=== PATIENT | male | born 1950 | race Caucasian/White ===

== ENCOUNTER → 2016-09-14 | Outpatient (CLI) | payer OTHER ==
[~2016-09-14] MED LIST: ATV/1 PO; ATV5 PO; B-COCAP2 PO; CRAN400C PO; DIAZ2TAB PO; DUTA0.5C PO; FURO-85 PO; IBUP-1050 PO; IPRASOL4 INH; LORA-741 PO; MORP1TAB11 PO; MRPL PO; NYSS5 PO; OMEG10007 PO; ONDA4TAB46 SQ; TAMS0.4C38 PO
== END | disposition home or self-care (01) ==
LOC: C.LABSPEC 15:35
PROVIDERS: ATTEND Nurse Practitioner Family
DX: R35.0 Frequency of micturition (principal)

== ENCOUNTER 2016-09-27 11:04 | Inpatient (IN) | payer OTHER, MEDICARE ==
[~2016-09-27] VITALS: Ht 188 cm; Wt 86.9 kg
[~2016-09-27 11:04] MED LIST changes: -ATV/1 PO; -ATV5 PO; -DIAZ2TAB PO; -DUTA0.5C PO; -FURO-85 PO; -IPRASOL4 INH; -LORA-741 PO; -MORP1TAB11 PO; -MRPL PO; -NYSS5 PO; -ONDA4TAB46 SQ; -TAMS0.4C38 PO
--- NOTE | 2016-09-27 11:19 | EMERGENCY ROOM VISIT NOTE ---
History Report prepared by Torrie: Kun Brandt Under the Supervision of: Dr. Rafael Arias D.O. First contact with patient: 11:09 Chief Complaint: REFERRED BY DOCTOR Stated Complaint: REFERRED BY [facility] POSSIBLE TB History of Present Illness The patient is a 66 year old male who presents to the Emergency Room with complaints of intermittent shortness of breath "for a while". Per the nursing staff, the patient was sent here from [facility] after having an abnormal chest x-ray this morning. The patient was being seen at [facility] for the shortness of breath. The chest x-ray reading says that the patient could have possible pneumonia or tuberculosis. The patient has been experiencing shortness of breath for the last 3 weeks. The patient has also been experiencing weight loss over the last few months. He denies having any definite night sweats or fevers. He has had no hemoptysis but has experience a dry cough. He has had dyspnea on exertion but no orthopnea or swelling in the legs. The patient has been seen by his primary care physician and also had an outpatient chest x-ray today. The patient was referred to the emergency department after the chest x-ray for possible miliary TB. 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 He states for approximately one year after this exposure he did have a PPD testing which was negative at that time. The patient does not have any history of cancer. He denies having any chest pain. He does complain of shortness of breath with exertion. Source of History: patient, nursing staff Onset: Last 3 weeks Position: other (global - shortness of breath) Quality: other (possible pneumonia or tuberculosis) Timing: intermittent Modifying Factors (Worsening): exertion Associated Symptoms: + cough, No chest pain, No diaphoresis, No fevers Note: Associated symptoms: Denies orthopnea or leg swelling. Review of Systems See HPI for pertinent positives & negatives. A total of 10 systems reviewed and were otherwise negative. Past Medical & Surgical Medical Problems: (1) Prostatitis (2) Pulmonary cavitary lesion (3) SOB (shortness of breath) on exertion Family History Unobtainable Social History Smoking Status: Never Smoker Alcohol Use: occasionally Drug Use: none Marital Status: Housing Status: lives with family Occupation Status: employed Current/Historical Medications Scheduled Cranberry (Vaccinium Macrocarp (Cranberry), 1 CAP PO BID Dutasteride (Avodart), 1 CAP PO DAILY Fish Oil (Mode-3), 1 CAP PO DAILY Ibuprofen (Advil), 200 MG PO prn Vitamin B Cmplx/Vitc/Folic Ac (Nephrocaps), 1 CAP PO DAILY Allergies Coded Allergies: Peanut (Unverified Allergy, Intermediate, HIVES, DIFFICULTY BREATHING, 09/02) Uncoded Allergies: "EMMIE" ASTHMA RELATED (Allergy, Unknown, 06/25/02) N (Allergy, Unknown, 06/25/02) Physical Exam Vital Signs Date Time Temp Pulse Resp B/P Pulse Ox O2 Delivery O2 Flow Rate FiO2 09/27/16 12:27 101 20 141/101 91 Room Air 09/27/16 11:36 108 09/27/16 11:06 36.8 119 18 151/85 93 Room Air Physical Exam GENERAL: Patient is awake alert in no acute distress patient is resting comfortably and showing no signs of anxiety EYES: The conjunctivae are clear. The pupils are round and reactive. EARS, NOSE, MOUTH AND THROAT: The nose is without any evidence of any deformity. Mucous membranes are moist tongue is midline NECK: The neck is nontender and supple. RESPIRATORY: No tachypnea or conversational dyspnea was noted. There were diminished breath sounds noted throughout. Dry Rales were noted in all lung ocampo. CARDIOVASCULAR: Regular rate and rhythm noted there no murmurs rubs or gallops normal S1 normal S2 GASTROINTESTINAL: The abdomen is soft. Bowel sounds are present in all quadrants. Abdomen is nontender MUSCULOSKELETAL/EXTREMITIES: There is no evidence of gross deformity full range of motion is noted in the hips and shoulders SKIN: There is no obvious evidence of any rash. There are no petechiae, pallor or cyanosis noted. NEUROLOGIC: Patient is awake alert and oriented x3. Medical Decision & Procedures ER Provider Diagnostic Interpretation: X-ray results as stated below per interpretation by me and the radiologist. CHEST ONE VIEW PORTABLE CLINICAL HISTORY: Sepsis COMPARISON STUDY: No previous studies for comparison. FINDINGS: The heart is at the upper limits of normal in size. There is a small right pleural effusion. There are bilateral reticulonodular opacities with subpleural septal edema on the right. There is a more focal right upper lobe airspace opacity. The findings are likely infectious/inflammatory given history of sepsis with possible superimposed edema. A right suprahilar neoplastic process cannot be excluded. Clinical and radiographic follow-up is recommended.[ IMPRESSION: 1. Bilateral reticulonodular opacities with subpleural septal edema on the right 2. Focal masslike 6 cm right suprahilar airspace opacity. 3. Clinical and radiographic follow-up is recommended. Electronically signed by: Jose Rafael Reis M.D. 09/27/2016 11:50 AM Dictated Date/Time: 09/27/2016 11:47 AM Laboratory Results 09/27/16 11:45 Red Blood Count 5.56, Mean Corpuscular Volume 84.0, Mean Corpuscular Hemoglobin 29.5, Mean Corpuscular Hemoglobin Concent 35.1, Mean Platelet Volume 10.0, Neutrophils (%) (Auto) 81.4, Lymphocytes (%) (Auto) 8.6, Monocytes (%) (Auto) 8.3, Eosinophils (%) (Auto) 1.3, Basophils (%) (Auto) 0.2, Neutrophils # (Auto) 7.14, Lymphocytes # (Auto) 0.75, Monocytes # (Auto) 0.73, Eosinophils # (Auto) 0.11, Basophils # (Auto) 0.02 09/27/16 11:45 Test 09/27/16 11:45 09/27/16 11:56 White Blood Count 8.77 K/uL (4.8-10.8) Red Blood Count 5.56 M/uL (4.7-6.1) Hemoglobin 16.4 g/dL (14.0-18.0) Hematocrit 46.7 % (42-52) Mean Corpuscular Volume 84.0 fL (80-100) Mean Corpuscular Hemoglobin 29.5 pg (25-34) Mean Corpuscular Hemoglobin Concent 35.1 g/dl (32-36) Platelet Count 199 K/uL (130-400) Mean Platelet Volume 10.0 fL (7.4-10.4) Neutrophils (%) (Auto) 81.4 % Lymphocytes (%) (Auto) 8.6 % Monocytes (%) (Auto) 8.3 % Eosinophils (%) (Auto) 1.3 % Basophils (%) (Auto) 0.2 % Neutrophils # (Auto) 7.14 K/uL (1.4-6.5) Lymphocytes # (Auto) 0.75 K/uL (1.2-3.4) Monocytes # (Auto) 0.73 K/uL (0.11-0.59) Eosinophils # (Auto) 0.11 K/uL (0-0.5) Basophils # (Auto) 0.02 K/uL (0-0.2) RDW Standard Deviation 38.5 fL (36.4-46.3) RDW Coefficient of Variation 12.8 % (11.5-14.5) Immature Granulocyte % (Auto) 0.2 % Immature Granulocyte # (Auto) 0.02 K/uL (0.00-0.02) Erythrocyte Sedimentation Rate 22 mm/hr (0-14) Prothrombin Time 11.4 SECONDS (9.0-12.0) Prothromb Time International Ratio 1.1 (0.9-1.1) Activated Partial Thromboplast Time 29.9 SECONDS (21.0-31.0) Partial Thromboplastin Ratio 1.2 Urine Color DK YELLOW Urine Appearance CLEAR (CLEAR) Urine pH 5.5 (4.5-7.5) Urine Specific [place] 1.026 (1.000-1.030) Urine Protein NEG (NEG) Urine Glucose (UA) NEG (NEG) Urine Ketones TRACE (NEG) Urine Occult Blood NEG (NEG) Urine Nitrite NEG (NEG) Urine Bilirubin NEG (NEG) Urine Urobilinogen NEG (NEG) Urine Leukocyte Esterase NEG (NEG) Urine WBC (Auto) 1-5 /hpf (0-5) Urine RBC (Auto) 0-4 /hpf (0-4) Urine Hyaline Casts (Auto) 1-5 /lpf (0-5) Urine Epithelial Cells (Auto) 10-20 /lpf (0-5) Urine Bacteria (Auto) NEG (NEG) Venous Blood pH 7.48 (7.36-7.41) Venous Blood Partial Pressure CO2 33 mmHg (38.0-50.0) Venous Blood Partial Pressure O2 42 mmHg Venous Blood HCO3 23 mmol/L Venous Blood Oxygen Saturation 78.9 % Venous Blood Base Excess 0.7 mmol/L Anion Gap 10.0 mmol/L (3-11) Est Creatinine Clear Calc Drug Dose 108.4 ml/min Estimated GFR () 109.0 Estimated GFR (Non- 94.1 BUN/Creatinine Ratio 15.1 (10-20) Calcium Level 8.9 mg/dl (8.5-10.1) Magnesium Level 2.1 mg/dl (1.8-2.4) Total Bilirubin 0.8 mg/dl (0.2-1) Aspartate Amino Transf (AST/SGOT) 17 U/L (15-37) Alanine Aminotransferase (ALT/SGPT) 17 U/L (12-78) Alkaline Phosphatase 126 U/L (45-117) Troponin I < 0.015 ng/ml (0-0.045) C-Reactive Protein 1.99 mg/dl (0-0.29) Pro-B-Type Natriuretic Peptide 46 pg/ml (0-900) Total Protein 6.4 gm/dl (6.4-8.2) Albumin 3.0 gm/dl (3.4-5.0) Globulin 3.4 gm/dl (2.5-4.0) Albumin/Globulin Ratio 0.9 (0.9-2) Lipase 87 U/L (73-393) Bedside Lactic Acid Venous 1.30 mmol/L (0.90-1.70) Laboratory results per my review. Medications Administered Medications (Trade) Dose Ordered Sig/Josue Route Start Time Stop Time Status Last Admin Dose Admin Tuberculin PPD/ Syringe (Ppd Skin Test/ Syringe) 0.1 ml @ 0 mls/hr ONE ONCE INTRAD 09/27/16 11:30 09/27/16 11:32 DC 09/27/16 14:06 0.01 MLS/HR ECG Indication: SOB/dyspnea Rate (beats per minute): 109 Rhythm: sinus tachycardia Findings: PVC, other (LVH noted by voltage criteria, no acute ST segment abnormalities) Comparison ECG Date: no prior available ED Course 1110: The patient was evaluated in room A9B. A complete history and physical examination were performed. 1124: I discussed the patient [place] [facility] [place] - he recommends keeping the patient in the hospital for a formal TB workup. 1130: Ordered Tuberculin PPD 5 tu/Syringe 0.1 ml @ 0 mls/hr INTRAD. 1140: I reevaluated the patient and he is resting comfortably. The patient verbally expressed understanding and agreement with the treatment plan. The patient will be evaluated for further treatment. 1142: I discussed the patient with Marlene Elizabeth. She will evaluate the patient for further treatment. Medical Decision Prior records/ancillary studies reviewed. Triage Nursing notes reviewed. The patient's history was concerning for respiratory difficulties. Differential diagnosis: Etiologies such as infections, reactive airway disease, pneumonia, pneumothorax , COPD, CHF, cardiac ischemia, pulmonary embolism, musculoskeletal, gastrointestinal, as well as others were entertained. The patient is a 66-year-old male who presented to the emergency department for an evaluation of shortness of breath. The patient has had a nonproductive cough and dyspnea on exertion for the last few weeks. He was seen by his primary care physician initially. He was sent for chest x-ray at [facility]. [facility] today. After the chest x-ray. He was sent to the emergency department for possible tuberculosis. The patient does not have a history of tuberculosis. 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 He states that he did have follow-up testing for one year, which was negative. The patient is not a smoker. He denies having any hemoptysis. He does complain of weight loss however. 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 At this time because the patient's chest x-ray is worrisome. He recommends keeping the patient in negative pressure isolation until further workup can be undertaken to rule out tuberculosis. I discussed the patient's laboratory and radiographic studies with him. I also discussed his case with the on-call [facility] hospitalist. They 've agreed to evaluate the patient in the emergency department for further management and disposition. Consults Time Called: 1110 Consulting Physician: Dr. Oscar TRACY pulmonary medicine Returned Call: 1124 I discussed the patient with Dr. Oscar TRACY pulmonary medicine - he recommends keeping the patient in the hospital for a formal TB workup. Additional Consults: Time Called: 1135 Consulted Physician: Marlene Elizabeth Returned Call: 1142 Additional Comments: I discussed the patient with Marlene Elizabeth. She will evaluate the patient for further treatment. Impression Primary Impression: SOB (shortness of breath) Additional Impressions: Dyspnea on exertion Abnormal chest x-ray Rule out TB Scribe Attestation The scribe's documentation has been prepared under my direction and personally reviewed by me in its entirety. I confirm that the note above accurately reflects all work, treatment, procedures, and medical decision making performed by me. Departure Information Dispostion Being Evaluated By Hospitalist Referrals Martinez Chong III, M.D. (PCP) Patient Instructions [facility] Problem Qualifiers
[2016-09-27] MEDS ORDERED: TUBERCULIN SKIN TEST 5 TU in SYRINGE 0 ML INTRAD ONE (11:30)
--- NOTE | 2016-09-27 11:51 | DIAGNOSTIC IMAGING REPORT ---
CHEST ONE VIEW PORTABLE CLINICAL HISTORY: Sepsis COMPARISON STUDY: No previous studies for comparison. FINDINGS: The heart is at the upper limits of normal in size. There is a small right pleural effusion. There are bilateral reticulonodular opacities with subpleural septal edema on the right. There is a more focal right upper lobe airspace opacity. The findings are likely infectious/inflammatory given history of sepsis with possible superimposed edema. A right suprahilar neoplastic process cannot be excluded. Clinical and radiographic follow-up is recommended.[ IMPRESSION: 1. Bilateral reticulonodular opacities with subpleural septal edema on the right 2. Focal masslike 6 cm right suprahilar airspace opacity. 3. Clinical and radiographic follow-up is recommended. Electronically signed by: Jose Rafael Reis M.D. 09/27/2016 11:50 AM Dictated Date/Time: 09/27/2016 11:47 AM
[2016-09-27 12:04] LABS: VEN BLD GAS O2 SATURATION 78.9 %; VEN BLOOD GAS BASE EXCESS 0.7 mmol/L
[2016-09-27 12:11] LABS: URINE APPEARANCE CLEAR (CLEAR); URINE BILIRUBIN NEG (NEG); URINE COLOR DK YELLOW; URINE NITRITE NEG (NEG); URINE PH 5.5 (4.5-7.5); URINE SPECIFIC GRAVITY 1.026 (1.000-1.030); UROBILINOGEN NEG (NEG); ZZUR CULT IF INDIC CLEAN CATCH NO
[2016-09-27 12:13] LABS: BASO % 0.2 %; BASO ABS # 0.02 K/uL (0-0.2); COMPLETE YES; EOS % 1.3 %; HEMATOCRIT 46.7 % (42-52); IG% 0.2 %; LYMPH % 8.6 %; LYMPH ABS # 0.75 K/uL (1.2-3.4); MEAN CORPUSCULAR HEMOGLOBIN 29.5 pg (25-34); MEAN CORPUSCULAR HGB CONC 35.1 g/dl (32-36); MONO % 8.3 %; NEUT % 81.4 %; PLATELET COUNT 199 K/uL (130-400); RED BLOOD COUNT 5.56 M/uL (4.7-6.1); WHITE BLOOD COUNT 8.77 K/uL (4.8-10.8)
[2016-09-27 12:15] LABS: MANUAL MICROSCOPIC REQUIRED? NO; REVIEW REQ? NO
[2016-09-27 12:21] LABS: INR 1.1 (0.9-1.1); PARTIAL THROMBOPLASTIN RATIO 1.2; PROTHROMBIN TIME (PATIENT) 11.4 SECONDS (9.0-12.0)
[2016-09-27 12:31] LABS: CALCIUM 8.9 mg/dl (8.5-10.1)
[2016-09-27 12:32] LABS: ALT/SGPT 17 U/L (12-78); AST/SGOT 17 U/L (15-37); BLOOD UREA NITROGEN 12 mg/dl (7-18); BUN/CREATININE RATIO 15.1 (10-20); C-REACTIVE PROTEIN 1.99 mg/dl (0-0.29); CARBON DIOXIDE 22 mmol/L (21-32); CHLORIDE 108 mmol/L (98-107); CREATININE 0.78 mg/dl (0.60-1.40); GLUCOSE 114 mg/dl (70-99); MAGNESIUM 2.1 mg/dl (1.8-2.4); POTASSIUM 3.8 mmol/L (3.5-5.1); SODIUM 140 mmol/L (136-145)
[2016-09-27] MEDS ORDERED: IBUPROFEN 200 MG TAB PO SCH (13:00)
[2016-09-27] MEDS ORDERED: ONDANSETRON INJ 2 MG/ML 2 ML VIAL IV PRN (13:00)
[2016-09-27] MEDS ORDERED: ALPRAZOLAM 0.25 MG TAB PO PRN (13:00)
[2016-09-27] MEDS ORDERED: ACETAMINOPHEN 325 MG TAB PO PRN (13:00)
[2016-09-27 13:04] LABS: ALB/GLOB RATIO 0.9 (0.9-2)
[2016-09-27 13:19] LABS: ALKALINE PHOSPHATASE 126 U/L (45-117)
[2016-09-27] MEDS ORDERED: ALBUTEROL 0.083% NEBU SOLN 3 ML VIAL INH PRN (13:30)
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
[2016-09-27] MEDS ORDERED: CIPROFLOXACIN 500 MG TAB PO STA (13:51)
[2016-09-27] MEDS ORDERED: OPTIRAY 320 IV PRN (14:00)
--- NOTE | 2016-09-27 14:40 | DIAGNOSTIC IMAGING REPORT ---
CT ANGIOGRAM OF THE CHEST CLINICAL HISTORY: Cavitary lung lesion. COMPARISON STUDY: Chest x-ray dated 09/27/2016. Abdominal CT dated 02/11/2016. TECHNIQUE: Following the IV administration of 119 cc of Optiray 320, CT angiogram of the chest was performed from the upper abdomen to the thoracic inlet utilizing the pulmonary embolus protocol. Images are reviewed in the axial, sagittal, and coronal planes. 3-D MIPS images are created and assessed. IV contrast was administered without complication. CT DOSE: 759.10 mGycm FINDINGS: Thyroid: Imaged portions of the thyroid gland are normal in size and attenuation. Thoracic aorta: The thoracic aorta is normal in caliber and demonstrates standard 3-vessel arch anatomy. No dissection is seen. Pulmonary vasculature: The pulmonary trunk is normal in caliber. There are no filling defects identified in main, lobar, or segmental pulmonary branches to suggest pulmonary embolus. Heart: The heart is normal in size and configuration, noting a small to moderate pericardial effusion. The coronary arteries are densely calcified. Lungs and pleural spaces: There are moderate right and trace left pleural effusions. There is dense airspace consolidation at the left lung base. Dense masslike consolidation is present in the right upper lobe. There is diffuse intralobular septal thickening throughout the right lung and the left lower lobe with miliary nodularity. There is relative sparing of the left upper lobe with only scattered foci of patchy consolidation the lingula. There is significant peribronchial thickening, as well as significant volume loss in the right upper lobe. The trachea and central airways are clear. Mediastinum: There are mildly enlarged mediastinal lymph nodes. A pretracheal node on image #233 measures 1.9 x 1.0 cm. Prevascular nodes measure up to 10 mm short axis. Yani: There are mildly enlarged bilateral hilar lymph nodes. The largest is on the left and measures up to 1.5 cm in short axis. The right hilum is partially secured by the consolidated and atelectatic right upper lobe. Lower neck: There are mildly enlarged left cervical radicular lymph nodes. A novelties sales representative node is seen image #313 and measures 1.9 x 1.4 cm. Axillae: There is no axillary lymphadenopathy. Upper abdomen: There are numerous calcified gallstones. Partially visualized upper abdominal viscera is otherwise within normal limits. Skeletal structures: No lytic or blastic bony lesions are seen. IMPRESSION: 1. There is no evidence of pulmonary embolus in the main, lobar, or segmental pulmonary arteries. 2. There is masslike consolidation in the right upper lobe with significant volume loss. Additionally, there is dense airspace consolidation at the left lung base. No cavitation is identified. Additionally, there is diffuse intralobular septal thickening and miliary nodularity seen throughout the right lung as well as the left lower lobe. These findings are nonspecific and new from the 02/11/[address] scan. Top differential considerations included atypical infectious process such as tuberculosis, or possibly a fungal or viral pneumonia. Neoplasm, sarcoidosis, or a pneumoconiosis could have a similar appearance but are considered less likely due to the rapidity of onset. Clinical correlation will be essential. Pulmonary consultation is recommended with consideration to bronchoscopy. 3. Moderate right and trace left pleural effusions. 4. There are only mildly enlarged mediastinal, hilar, and left supraclavicular lymph nodes. 5. Cholelithiasis. 6. Additional findings as above. Electronically signed by: Matthew Whatley M.D. 09/27/2016 2:38 PM Dictated Date/Time: 09/27/2016 1:58 PM
[2016-09-27] MEDS ORDERED: DUTA0.5C PO (15:05)
[2016-09-27] MEDS: AVODART - ORDER AWAITING ACTION SCH ×2 (15:15→20:00)
[2016-09-27 15:21] VITALS: BP 124/79; TEMP 37; O2SAT 90
[2016-09-27 15:40] VITALS: Ht 188 cm; Wt 86.9 kg
[2016-09-27] MEDS: SODIUM CHLORIDE 0.9% 1000ML 1,000 ML IV SCH (17:18)
--- NOTE | 2016-09-27 17:18 | Procedure Note ---
Procedure Note Date of Service September 27, 2016. Procedure Note Procedures: Right sided Thoracentesis Consent: obtained via the patient and placed into the chart Pre-Procedural Dx: new onset pleural effusion Post-Procedural Dx: malignant effusion Analgesia: 8cc of 1% Liquid Lidocaine Procedure: The patient was placed in an upright position and thoracic US was used to select a spot for the procedure. A spot along the posterior axillary line was marked in the 7th intercostal space. The patient was then draped and prepped in a sterile fashion. A modified Seldinger technique was then used for catheter placement. Flowing this approximately 1000cc of dark tannish pleural fluid was removed. The patient was then cleaned and placed at a 60 degree angle in the bed were the US was used to evaluate for possible pneumothorax. The US showed good lung sliding and [place] signs. EBL: 0 Complications: none
[2016-09-27] MEDS: HEPARIN SOD 5000 UNIT/0.5 ML CARP SQ SCH ×2 (17:20→20:09)
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
--- NOTE | 2016-09-27 17:38 | DIAGNOSTIC IMAGING REPORT ---
CHEST ONE VIEW PORTABLE CLINICAL HISTORY: right sided S/P Thoracentesis dyspnea COMPARISON STUDY: 09/27/2016 11:36 AM FINDINGS: No change compared to the prior study. Diffuse bilateral reticulonodular infiltrative changes combine with a right perihilar density are unaltered. No evidence of pneumothorax status post thoracentesis. IMPRESSION: No evidence of pneumothorax postthoracentesis. Unchanged exam compared to prior Electronically signed by: Yassine Rubio M.D. 09/27/2016 5:36 PM Dictated Date/Time: 09/27/2016 5:36 PM
[2016-09-27 18:32] LABS: PLEURAL FLUID COLOR ORANGE; PLEURAL FLUID SOURCE RIGHT PLEURAL FLUID
[2016-09-27 18:33] LABS: PLEURAL FLUID APPEARANCE TURBID; PLEURAL FLUID WBC (A) 1594 /uL
[2016-09-27 18:35] LABS: PLEURAL FLUID TOTAL PROTEIN 3.5 g/dl
[2016-09-27 19:34] LABS: PLEURAL FLUID MONONUC RELAT 85.9 %; PLEURAL FLUID POLYNUC 14.1 %
[2016-09-27] MEDS: CIPROFLOXACIN 500 MG TAB PO SCH (20:05)
[2016-09-27] MEDS ORDERED: TAMSULOSIN HCL 0.4 MG CAP PO SCH (21:00)
[2016-09-27] MEDS: TAMSULOSIN HCL 0.4 MG CAP PO SCH (21:28)
[2016-09-27 23:37] VITALS: BP 136/85; PULSE 82; TEMP 36.7; O2SAT 92
[2016-09-28] MEDS: SODIUM CHLORIDE 0.9% 1000ML 1,000 ML IV SCH ×2 (02:35→15:57)
[2016-09-28] MEDS ORDERED: LORAZEPAM 0.5 MG TAB PO STA (03:50)
[2016-09-28 05:40] LABS: HEMATOCRIT 46.3 % (42-52); MEAN CELL VOLUME 85.9 fL (80-100); MEAN CORPUSCULAR HEMOGLOBIN 29.7 pg (25-34); MEAN CORPUSCULAR HGB CONC 34.6 g/dl (32-36); MEAN PLATELET VOLUME 9.9 fL (7.4-10.4); PLATELET COUNT 217 K/uL (130-400); RED BLOOD COUNT 5.39 M/uL (4.7-6.1); WHITE BLOOD COUNT 9.71 K/uL (4.8-10.8)
[2016-09-28 06:08] LABS: BUN/CREATININE RATIO 13.7 (10-20); CALCIUM 8.4 mg/dl (8.5-10.1); CREATININE 0.83 mg/dl (0.60-1.40); POTASSIUM 3.8 mmol/L (3.5-5.1)
[2016-09-28 07:41] VITALS: BP 153/91; PULSE 89; TEMP 36.7; O2SAT 92
[2016-09-28 07:45] VITALS: O2SAT 93
[2016-09-28] MEDS: AVODART - ORDER AWAITING ACTION SCH ×3 (08:00→20:00)
--- NOTE | 2016-09-28 09:41 | Pulmonology Progress Note ---
Pulmonary Progress Note Date of Service September 28, 2016. Attending Dr. Moore Subjective Patient has improved cough s/p thoracentesis with no complaints of other respiratory issues Objective Patient showing no signs of respiratory compromise at this time a f/u CXR s/p thoracentesis shows good re-expansion of the lung with no signs of PTX. Patient is notable anxious possibly depressed VS: stable on RA RESP: increased BS RLL with rhonchi (b) greatest in the lower lobes CARD: S1S2 RRR no m/r/g ABD: +BS soft non-tender no rebound CT ABD (02/11/2016) LLL nodule sized at 6mm Pathologic review of pleural fluid notes high probability of MTX adeno-ca Assessment & Plan 66y/o male with MTX new onset right sided pleural effusion and other associated thoracic CT changes 1) RESP: At this time the patient's wet read suggests MTX adenocarcinoma. I will consult Oncology at this time. I don't believe they have to see him until after he has been cleared form possibly active TB. I would also like to make sure this patient sees me as an out-patient for f/u on the pleural effusion. 2) Isolation: At this time we do have a primary diagnosis for the patient's abnormal CT findings but literature from primary lung carcinomas notes a 2% occurrence of lung ca and active TB and as this patient has a know exposure to a patient with active TB. I will keep him in isolation over the next 24 hours and if his PPD is WNL will remove him at that time. Quant-gold is still pending. 3) RUL: Collapsed RUL most likely from MTX ca. Patient will require a bronchoscopy for further evaluation when he is out of isolation. 4) Anxiety/Depression: Patient is notably anxious and showing signs of depression. As he has a history of depression with self inflicted wound I will consult physiatric at this time for and evaluation. Data Medications: Current Inpatient Medications Medications (Trade) Dose Ordered Sig/Josue Route Start Time Stop Time Status Last Admin Dose Admin Heparin Sodium (Porcine) (Heparin Sq 5000 Unit/0.5ml) 5,000 unit TID SQ 09/27/16 15:30 10/27/16 15:29 09/27/16 20:09 5,000 UNIT Acetaminophen (Tylenol Tab) 650 mg Q4H PRN PO 09/27/16 13:00 10/27/16 12:59 Ondansetron HCl (Zofran Inj) 4 mg Q6H PRN IV 09/27/16 13:00 10/27/16 12:59 Vitamin B Complex/ Vit C/Folic Acid (Nephrocaps) 1 cap DAILY PO 09/28/16 08:00 10/28/16 08:59 Ciprofloxacin (Cipro Tab) 500 mg BID PO 09/27/16 20:00 10/07/16 20:59 09/27/16 20:05 500 MG Alprazolam (Xanax Tab) 0.25 mg Q12H PRN PO 09/27/16 13:00 10/27/16 12:59 Atorvastatin Calcium (Lipitor Tab) 20 mg QAM PO 09/28/16 08:00 10/28/16 08:59 Miscellaneous Information 1 ea 1 ea TID N/A 09/27/16 15:15 10/27/16 15:14 Sodium Chloride (Nss 1000ml) 1,000 ml @ 75 mls/hr [id number] IV 09/27/16 13:00 10/27/16 12:59 09/28/16 02:35 75 MLS/HR Albuterol Sulfate (Ventolin 0.083% 2.5MG/3ML Neb) 2.5 mg Q6R PRN INH 09/27/16 13:30 10/27/16 13:29 Ioversol (Optiray 320) 111 ml UD PRN IV 09/27/16 14:00 10/01/16 13:59 Tamsulosin HCl (Flomax Cap) 0.8 mg HS PO 09/27/16 21:00 10/27/16 20:59 09/27/16 21:28 0.4 MG I & O: 24-Hour Column 09/28/16 08:00 Intake Total 867 ml Output Total 100 ml Balance 767 ml Vital Signs: Date Time Temp Pulse Resp B/P Pulse Ox O2 Delivery O2 Flow Rate FiO2 09/28/16 07:41 36.7 89 18 153/91 92 Room Air 09/28/16 00:00 Room Air 09/27/16 23:37 36.7 82 16 136/85 92 Room Air 09/27/16 15:40 Room Air 09/27/16 15:21 37.0 18 124/79 90 Room Air 09/27/16 14:40 80 18 135/94 94 09/27/16 13:35 94 16 125/97 93 Room Air 09/27/16 12:27 101 20 141/101 91 Room Air 09/27/16 11:36 108 09/27/16 11:06 36.8 119 18 151/85 93 Room Air Laboratory Results: Last 24 Hours Test 09/27/16 11:45 09/27/16 11:56 09/28/16 05:07 White Blood Count 8.77 K/uL 9.71 K/uL Red Blood Count 5.56 M/uL 5.39 M/uL Hemoglobin 16.4 g/dL 16.0 g/dL Hematocrit 46.7 % 46.3 % Mean Corpuscular Volume 84.0 fL 85.9 fL Mean Corpuscular Hemoglobin 29.5 pg 29.7 pg Mean Corpuscular Hemoglobin Concent 35.1 g/dl 34.6 g/dl Platelet Count 199 K/uL 217 K/uL Mean Platelet Volume 10.0 fL 9.9 fL Neutrophils (%) (Auto) 81.4 % Lymphocytes (%) (Auto) 8.6 % Monocytes (%) (Auto) 8.3 % Eosinophils (%) (Auto) 1.3 % Basophils (%) (Auto) 0.2 % Neutrophils # (Auto) 7.14 K/uL Lymphocytes # (Auto) 0.75 K/uL Monocytes # (Auto) 0.73 K/uL Eosinophils # (Auto) 0.11 K/uL Basophils # (Auto) 0.02 K/uL RDW Standard Deviation 38.5 fL 41.2 fL RDW Coefficient of Variation 12.8 % 13.1 % Immature Granulocyte % (Auto) 0.2 % Immature Granulocyte # (Auto) 0.02 K/uL Erythrocyte Sedimentation Rate 22 mm/hr Prothrombin Time 11.4 SECONDS Prothromb Time International Ratio 1.1 Activated Partial Thromboplast Time 29.9 SECONDS Partial Thromboplastin Ratio 1.2 Urine Color DK YELLOW Urine Appearance CLEAR Urine pH 5.5 Urine Specific [place] 1.026 Urine Protein NEG Urine Glucose (UA) NEG Urine Ketones TRACE Urine Occult Blood NEG Urine Nitrite NEG Urine Bilirubin NEG Urine Urobilinogen NEG Urine Leukocyte Esterase NEG Urine WBC (Auto) 1-5 /hpf Urine RBC (Auto) 0-4 /hpf Urine Hyaline Casts (Auto) 1-5 /lpf Urine Epithelial Cells (Auto) 10-20 /lpf Urine Bacteria (Auto) NEG Venous Blood pH 7.48 Venous Blood Partial Pressure CO2 33 mmHg Venous Blood Partial Pressure O2 42 mmHg Venous Blood HCO3 23 mmol/L Venous Blood Oxygen Saturation 78.9 % Venous Blood Base Excess 0.7 mmol/L Sodium Level 140 mmol/L 141 mmol/L Potassium Level 3.8 mmol/L 3.8 mmol/L Chloride Level 108 mmol/L 106 mmol/L Carbon Dioxide Level 22 mmol/L 28 mmol/L Anion Gap 10.0 mmol/L 7.0 mmol/L Blood Urea Nitrogen 12 mg/dl 11 mg/dl Creatinine 0.78 mg/dl 0.83 mg/dl Est Creatinine Clear Calc Drug Dose 108.4 ml/min 101.8 ml/min Estimated GFR () 109.0 106.3 Estimated GFR (Non- 94.1 91.7 BUN/Creatinine Ratio 15.1 13.7 Random Glucose 114 mg/dl 101 mg/dl Calcium Level 8.9 mg/dl 8.4 mg/dl Magnesium Level 2.1 mg/dl Total Bilirubin 0.8 mg/dl Aspartate Amino Transf (AST/SGOT) 17 U/L Alanine Aminotransferase (ALT/SGPT) 17 U/L Alkaline Phosphatase 126 U/L Troponin I < 0.015 ng/ml C-Reactive Protein 1.99 mg/dl Pro-B-Type Natriuretic Peptide 46 pg/ml Total Protein 6.4 gm/dl Albumin 3.0 gm/dl Globulin 3.4 gm/dl Albumin/Globulin Ratio 0.9 Lipase 87 U/L Bedside Lactic Acid Venous 1.30 mmol/L
[2016-09-28] MEDS: CIPROFLOXACIN 500 MG TAB PO SCH ×2 (09:45→20:06)
[2016-09-28] MEDS: ATORVASTATIN 20 MG TAB PO SCH (09:45)
[2016-09-28] MEDS: NEPHROCAPS PO SCH (09:46)
[2016-09-28] MEDS: HEPARIN SOD 5000 UNIT/0.5 ML CARP SQ SCH ×3 (09:49→20:12)
[2016-09-28 12:20] VITALS: BP 135/80; PULSE 86; TEMP 36.7; O2SAT 92
[2016-09-28 14:55] VITALS: BP 136/81; PULSE 83; TEMP 36.7; O2SAT 93
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
--- NOTE | 2016-09-28 19:43 | Progress Note ---
Medicine Progress Note Date & Time of Visit: September 28, 2016 at 19:43. Subjective Pt was seen and examined Sitting in bed with at bedside Pt said that he feels overwhelmed because he came here for a cough a now they said that he has adenocarcinoma in the lung Pt said that he feels ok denies any chest pain, palpitation, dizziness and sob Objective Last 8 Hrs Date Time Temp Pulse Resp B/P Pulse Ox O2 Delivery O2 Flow Rate FiO2 09/28/16 16:00 Room Air 09/28/16 14:55 36.7 83 22 136/81 93 Room Air 09/28/16 12:20 36.7 86 20 135/80 92 Room Air Physical Exam: General- no acute distress Head- atraumatic Eyes- PERRL, EOMI ENT- oropharynx clear Neck- supple, no JVD Lungs-No wheezing Heart- regular rhythm; no murmur Abdomen- normal bowel sounds, soft Extremities- no calf tenderness Neuro- alert, oriented x 3; PERRL, EOMI; no facial palsy Skin- warm & dry Laboratory Results: Last 24 Hours Test 09/28/16 05:07 White Blood Count 9.71 K/uL Red Blood Count 5.39 M/uL Hemoglobin 16.0 g/dL Hematocrit 46.3 % Mean Corpuscular Volume 85.9 fL Mean Corpuscular Hemoglobin 29.7 pg Mean Corpuscular Hemoglobin Concent 34.6 g/dl RDW Standard Deviation 41.2 fL RDW Coefficient of Variation 13.1 % Platelet Count 217 K/uL Mean Platelet Volume 9.9 fL Sodium Level 141 mmol/L Potassium Level 3.8 mmol/L Chloride Level 106 mmol/L Carbon Dioxide Level 28 mmol/L Anion Gap 7.0 mmol/L Blood Urea Nitrogen 11 mg/dl Creatinine 0.83 mg/dl Est Creatinine Clear Calc Drug Dose 101.8 ml/min Estimated GFR () 106.3 Estimated GFR (Non- 91.7 BUN/Creatinine Ratio 13.7 Random Glucose 101 mg/dl Calcium Level 8.4 mg/dl Assessment & Plan Shortness of Breath with exertion Repeat cxr yesterday showed Diffuse bilateral reticulonodular infiltrative changes combine with a right perihilar density are unaltered. Pulmonary on board- Suggest MTX adenocarcinoma will need a bronchoscopy for further evaluation when he is out of isolation. Continue isolation for now until PPD result tomorrow On cipro BID Quant-gold is still pending. Oncology consulted Anxiety/depression. On Xanax prn Psych consulted BPH On Avodart and Flomax Hyperlipidemia. Continue Lipitor. DVT Px on Heparin subq . CODE STATUS FULL CODE Current Inpatient Medications: Current Inpatient Medications Medications (Trade) Dose Ordered Sig/Josue Route Start Time Stop Time Status Last Admin Dose Admin Heparin Sodium (Porcine) (Heparin Sq 5000 Unit/0.5ml) 5,000 unit TID SQ 09/27/16 15:30 10/27/16 15:29 09/28/16 13:54 5,000 UNIT Acetaminophen (Tylenol Tab) 650 mg Q4H PRN PO 09/27/16 13:00 10/27/16 12:59 Ondansetron HCl (Zofran Inj) 4 mg Q6H PRN IV 09/27/16 13:00 10/27/16 12:59 Vitamin B Complex/ Vit C/Folic Acid (Nephrocaps) 1 cap DAILY PO 09/28/16 08:00 10/28/16 08:59 09/28/16 09:46 1 CAP Ciprofloxacin (Cipro Tab) 500 mg BID PO 09/27/16 20:00 10/07/16 20:59 09/28/16 09:45 500 MG Alprazolam (Xanax Tab) 0.25 mg Q12H PRN PO 09/27/16 13:00 10/27/16 12:59 Atorvastatin Calcium (Lipitor Tab) 20 mg QAM PO 09/28/16 08:00 10/28/16 08:59 09/28/16 09:45 20 MG Miscellaneous Information 1 ea 1 ea TID N/A 09/27/16 15:15 10/27/16 15:14 Sodium Chloride (Nss 1000ml) 1,000 ml @ 75 mls/hr [id number] IV 09/27/16 13:00 10/27/16 12:59 09/28/16 15:57 75 MLS/HR Albuterol Sulfate (Ventolin 0.083% 2.5MG/3ML Neb) 2.5 mg Q6R PRN INH 09/27/16 13:30 10/27/16 13:29 Ioversol (Optiray 320) 111 ml UD PRN IV 09/27/16 14:00 10/01/16 13:59 Tamsulosin HCl (Flomax Cap) 0.8 mg HS PO 09/27/16 21:00 10/27/16 20:59 09/27/16 21:28 0.4 MG
[2016-09-28] MEDS: TAMSULOSIN HCL 0.4 MG CAP PO SCH (20:06)
[2016-09-28] MEDS ORDERED: DUTASTERIDE 0.5MG PO SCH ×2 (21:00)
[2016-09-29] VITALS: BP 120/74; PULSE 81; TEMP 36.9; O2SAT 92
[2016-09-29] MEDS ORDERED: LORAZEPAM 0.5 MG TAB PO ONE (00:22)
[2016-09-29] MEDS ORDERED: LORAZEPAM 0.5 MG TAB PO PRN (00:30)
[2016-09-29] MEDS: SODIUM CHLORIDE 0.9% 1000ML 1,000 ML IV SCH (04:20)
[2016-09-29 07:12] VITALS: BP 120/82; PULSE 93; TEMP 36.4; O2SAT 90
[2016-09-29] MEDS ORDERED: DUTASTERIDE 0.5MG PO SCH ×2 (08:00)
[2016-09-29 08:30] VITALS: O2SAT 90
[2016-09-29] MEDS: HEPARIN SOD 5000 UNIT/0.5 ML CARP SQ SCH ×2 (08:37→14:39)
[2016-09-29] MEDS: ATORVASTATIN 20 MG TAB PO SCH (08:38)
[2016-09-29] MEDS: NEPHROCAPS PO SCH (08:38)
[2016-09-29] MEDS: CIPROFLOXACIN 500 MG TAB PO SCH (08:38)
[2016-09-29 11:33] VITALS: BP 144/89; PULSE 73; TEMP 36.8; O2SAT 94
[2016-09-29] MEDS ORDERED: NURSING VERBAL MED ORDER ONE (16:15)
[2016-09-29 17:09] VITALS: BP 144/89; PULSE 73; TEMP 36.8; O2SAT 94
--- NOTE | 2016-09-29 17:12 | Progress Note ---
Medicine Progress Note Date & Time of Visit: September 29, 2016 at 17:03. Subjective Pt was seen and examined He was in the bathroom. He walked through the bedside with no distress brother and at bedside Pt said that he feels the same He continue to have a dry cough Denies any chest pain, palpitation and SOB Objective Last 8 Hrs Date Time Temp Pulse Resp B/P Pulse Ox O2 Delivery O2 Flow Rate FiO2 09/29/16 16:00 Room Air 09/29/16 11:33 36.8 73 18 144/89 94 Room Air Physical Exam: General- no acute distress Head- atraumatic Eyes- PERRL, EOMI ENT- oropharynx clear Neck- supple, no JVD Lungs-No wheezing Heart- regular rhythm; no murmur Abdomen- normal bowel sounds, soft Extremities- no calf tenderness Neuro- alert, oriented x 3; PERRL, EOMI; no facial palsy Skin- warm & dry Assessment & Plan Shortness of Breath with exertion Repeat cxr yesterday showed Diffuse bilateral reticulonodular infiltrative changes combine with a right perihilar density are unaltered. Pulmonary on board- Suggest MTX adenocarcinoma will need a bronchoscopy for further evaluation when he is out of isolation. PPD negative- D/C isolation Quant-gold is still pending. Oncology consulted was cancelled Oncology will arrange to see patient as an outpatient Follow up with pulmonary Anxiety/depression. Xanax was d/c by psych Psych On board recommended to start Ativan prn BPH On Avodart and Flomax Prostatis Was started on cipro by PCP completed course. Hyperlipidemia. Continue Lipitor. DVT Px on Heparin subq . CODE STATUS FULL CODE DISPOSITION Will call pt on Saturday for follow up appointment with his PCP, Oncology and pulmonary Consultants: Pulmonary Current Inpatient Medications: Current Inpatient Medications Medications (Trade) Dose Ordered Sig/Josue Route Start Time Stop Time Status Last Admin Dose Admin Heparin Sodium (Porcine) (Heparin Sq 5000 Unit/0.5ml) 5,000 unit TID SQ 09/27/16 15:30 10/27/16 15:29 09/29/16 14:39 5,000 UNIT Acetaminophen (Tylenol Tab) 650 mg Q4H PRN PO 09/27/16 13:00 10/27/16 12:59 Ondansetron HCl (Zofran Inj) 4 mg Q6H PRN IV 09/27/16 13:00 10/27/16 12:59 Vitamin B Complex/ Vit C/Folic Acid (Nephrocaps) 1 cap DAILY PO 09/28/16 08:00 10/28/16 08:59 09/29/16 08:38 1 CAP Ciprofloxacin (Cipro Tab) 500 mg BID PO 09/27/16 20:00 10/07/16 20:59 09/29/16 08:38 500 MG Atorvastatin Calcium (Lipitor Tab) 20 mg QAM PO 09/28/16 08:00 10/28/16 08:59 09/29/16 08:38 20 MG Albuterol Sulfate (Ventolin 0.083% 2.5MG/3ML Neb) 2.5 mg Q6R PRN INH 09/27/16 13:30 10/27/16 13:29 Ioversol (Optiray 320) 111 ml UD PRN IV 09/27/16 14:00 10/01/16 13:59 Tamsulosin HCl (Flomax Cap) 0.8 mg HS PO 09/27/16 21:00 10/27/16 20:59 09/28/16 20:06 0.8 MG Dutasteride (Avodart) 0.5 mg HS PO 09/28/16 21:00 10/28/16 20:59 09/28/16 21:50 0.5 MG Lorazepam (Ativan Tab) 0.5 mg TID PRN PO 09/29/16 00:30 10/29/16 00:29
[2016-09-29] MEDS ORDERED: ATV5 PO (17:14)
--- NOTE | 2016-09-29 17:26 | Discharge Instructions ---
Discharge Instructions Date of Service September 29, 2016. Admission Reason for Admission: Pulmonary Cavtary Lesion Sob On Exertion Discharge Discharge Diagnosis / Problem: Adenocarcinoma of the lung, Anxiety, BPH, Dyslipidemia Discharge Goals Goal(s): Decrease discomfort, Improve function, Improve disease control Activity Recommendations Activity Limitations: resume your previous activity (gradually as tolerated) . Instructions / Follow-Up Instructions / Follow-Up Will call you to schedule you for follow up appointment with your primary care provider/Oncology and Pulmonary Medication change Xanax was discontinued Starting on Ativan 0.5 mg TID PRN Continue all previous medications. Current Hospital Diet Patient's current hospital diet: Regular Diet Discharge Diet Recommended Diet: AHA Diet (Heart Healthy) Pending Studies Studies pending at discharge: yes List of pending studies: Quantiferon gold test Medical Emergencies . Who to Call and When: Medical Emergencies: If at any time you feel your situation is an emergency, please call 911 immediately. . Non-Emergent Contact Non-Emergency issues call your: Primary Care Provider Call Non-Emergent contact if: you have a fever, you have any medication questions . . "Provider Documentation" section prepared by Collins Gilbert. . VTE Core Measure Inpt VTE Proph given/why not?: Unfractionated heparin SQ
--- NOTE | 2016-10-01 01:10 | Discharge Summary ---
Discharge Summary Date of Service October 01, 2016. Discharge Summary Admission Date: September 27, 2016 at 13:08 Discharge Date: September 29, 2016 Discharge Disposition: Home Principal Diagnosis: Shortness of Breath with exertion Secondary Diagnoses/Problems: Adenocarcinoma of the lung Anxiety BPH Dyslipidemia Procedures: CT ANGIOGRAM OF THE CHEST CLINICAL HISTORY: Cavitary lung lesion. COMPARISON STUDY: Chest x-ray dated 09/27/2016. Abdominal CT dated 02/11/2016. TECHNIQUE: Following the IV administration of 119 cc of Optiray 320, CT angiogram of the chest was performed from the upper abdomen to the thoracic inlet utilizing the pulmonary embolus protocol. Images are reviewed in the axial, sagittal, and coronal planes. 3-D MIPS images are created and assessed. IV contrast was administered without complication. CT DOSE: 759.10 mGycm FINDINGS: Thyroid: Imaged portions of the thyroid gland are normal in size and attenuation. Thoracic aorta: The thoracic aorta is normal in caliber and demonstrates standard 3-vessel arch anatomy. No dissection is seen. Pulmonary vasculature: The pulmonary trunk is normal in caliber. There are no filling defects identified in main, lobar, or segmental pulmonary branches to suggest pulmonary embolus. Heart: The heart is normal in size and configuration, noting a small to moderate pericardial effusion. The coronary arteries are densely calcified. Lungs and pleural spaces: There are moderate right and trace left pleural effusions. There is dense airspace consolidation at the left lung base. Dense masslike consolidation is present in the right upper lobe. There is diffuse intralobular septal thickening throughout the right lung and the left lower lobe with miliary nodularity. There is relative sparing of the left upper lobe with only scattered foci of patchy consolidation the lingula. There is significant peribronchial thickening, as well as significant volume loss in the right upper lobe. The trachea and central airways are clear. Mediastinum: There are mildly enlarged mediastinal lymph nodes. A pretracheal node on image #[id number] measures 1.9 x 1.0 cm. Prevascular nodes measure up to 10 mm short axis. Yani: There are mildly enlarged bilateral hilar lymph nodes. The largest is on the left and measures up to 1.5 cm in short axis. The right hilum is partially secured by the consolidated and atelectatic right upper lobe. Lower neck: There are mildly enlarged left cervical radicular lymph nodes. A sales account representative node is seen image #313 and measures 1.9 x 1.4 cm. Axillae: There is no axillary lymphadenopathy. Upper abdomen: There are numerous calcified gallstones. Partially visualized upper abdominal viscera is otherwise within normal limits. Skeletal structures: No lytic or blastic bony lesions are seen. IMPRESSION: 1. There is no evidence of pulmonary embolus in the main, lobar, or segmental pulmonary arteries. 2. There is masslike consolidation in the right upper lobe with significant volume loss. Additionally, there is dense airspace consolidation at the left lung base. No cavitation is identified. Additionally, there is diffuse intralobular septal thickening and miliary nodularity seen throughout the right lung as well as the left lower lobe. These findings are nonspecific and new from the 02/11/[address] scan. Top differential considerations included atypical infectious process such as tuberculosis, or possibly a fungal or viral pneumonia. Neoplasm, sarcoidosis, or a pneumoconiosis could have a similar appearance but are considered less likely due to the rapidity of onset. Clinical correlation will be essential. Pulmonary consultation is recommended with consideration to bronchoscopy. 3. Moderate right and trace left pleural effusions. 4. There are only mildly enlarged mediastinal, hilar, and left supraclavicular lymph nodes. 5. Cholelithiasis. 6. Additional findings as above. Electronically signed by: Matthew Whatley M.D. 09/27/2016 2:38 PM Dictated Date/Time: 09/27/2016 1:58 PM Consultations: Pulmonary Medication Reconciliation New Medications: Lorazepam (Lorazepam) 0.5 Mg Tab 0.5 MG PO TID PRN for Anxiety for 5 Days, #15 TAB Continued Medications: Cranberry (Vaccinium Macrocarp (Cranberry) 400 Mg Cap 1 CAP PO BID Dutasteride (Avodart) 0.5 Mg Cap 1 CAP PO DAILY for 30 Days, #30 CAP 5 Refills Fish Oil (Hudson-3) 1 Ea Cap 1 CAP PO DAILY, CAP Ibuprofen (Advil) 200 Mg Tab 200 MG PO prn, TAB Vitamin B Cmplx/Vitc/Folic Ac (Nephrocaps) 1 Cap Cap 1 CAP PO DAILY, CAP Admission Information HPI (per Admitting provider): CHIEF COMPLAINT: Exertional shortness of breath for the last 1 week or so. HISTORY OF PRESENT COMPLAINT: He is a 66-year-old male with significant past medical history of anxiety and depression. Apparently, has been complaining of shortness of breath after exertion for the last 1 week or so. He has been very active in his physical activity and he actually mows his 1 acre lawn about 3 times a week without significant symptoms before. For the last few weeks, he feels that after about mowing the lawn, he gets short of breath and he has to take rest. He has had cough that lasted for about 3-4 weeks before when he was exposed to ongoing upper airway infections in the community but that actually subsided. He denies history of any chest pain or any palpitation. He has cough but no production of any sputum. He does not have any abdominal pain, any nausea or vomiting. He denies history of any rash and denies history of any joint problems. He does not have any loss of appetite, but he has lost about 18 pounds for the last 3 months and he blames that to his depression. He feels that when he is depressed, he eats less and also he has been physically quite active and he feels his weight loss is due to that, not for any other cause. Apparently, he was exposed to active tuberculosis patient in but followed by monthly checkup for about 1 year without any significant findings. He also was in different churches but cannot remember to be exposed to any patient with active tuberculosis. Today, he was seen by Tabby Hu in [facility] with symptoms of exertional shortness of breath and chest x-ray was done that reported as atypical pneumonia/possibility Miliary tuberculosis and also Cavitary lesions in the lung. From that point, he was referred to ER for further evaluation and management. Physical Exam (per Admitting): GENERAL: On examination in the Emergency Room, he was not having any acute distress. VITAL SIGNS: Temperature 36.8, pulse was 101, blood pressure 141/101, saturation 91% on room air. HEENT: Unremarkable. NECK: Supple. No JVD, no bruit. CHEST: Decreased breath sounds at the bases with bilateral fine crackles on both sides of the lungs. HEART: S1, S2, regular, no murmur. ABDOMEN: Soft, benign, nontender, no organomegaly. Bowel sounds present. EXTREMITIES: Negative for any edema. MUSCULOSKELETAL: Did not show any acute arthritis involving any joint. CENTRAL NERVOUS SYSTEM: He was alert, awake, oriented x3. No focal sensory and/or motor deficit appreciated. Hospital Course Shortness of Breath with exertion Repeat cxr yesterday showed Diffuse bilateral reticulonodular infiltrative changes combine with a right perihilar density are unaltered. Pulmonary on board- Suggest MTX adenocarcinoma will need a bronchoscopy for further evaluation when he is out of isolation. PPD negative- D/C isolation Quant-gold is still pending. Oncology consulted was cancelled Oncology will arrange to see patient as an outpatient Follow up with pulmonary Anxiety/depression. Xanax was d/c by psych Psych On board recommended to start Ativan prn BPH On Avodart and Flomax Prostatis Was started on cipro by PCP completed course. Hyperlipidemia. Continue Lipitor. DVT Px on Heparin subq . CODE STATUS FULL CODE DISPOSITION Will call pt on Saturday for follow up appointment with his PCP, Oncology and pulmonary Total time spent on discharge = 35 MINUTES This includes examination of the patient, discharge planning, medication reconciliation, and communication with other providers. Discharge Instructions Discharge Instructions Date of Service September 29, 2016. Admission Reason for Admission: Pulmonary Cavitary Lesion, Sob On Exertion Discharge Discharge Diagnosis / Problem: Adenocarcinoma of the lung, Anxiety, BPH, Dyslipidemia Discharge Goals Goal(s): Decrease discomfort, Improve function, Improve disease control Activity Recommendations Activity Limitations: resume your previous activity (gradually as tolerated) . Instructions / Follow-Up Instructions / Follow-Up Will call you to schedule you for follow up appointment with your primary care provider/Oncology and Pulmonary Medication change Xanax was discontinued Starting on Ativan 0.5 mg TID PRN Continue all previous medications. Current Hospital Diet Patient's current hospital diet: Regular Diet Discharge Diet Recommended Diet: AHA Diet (Heart Healthy) Pending Studies Studies pending at discharge: yes List of pending studies: Quantiferon gold test Medical Emergencies . Who to Call and When: Medical Emergencies: If at any time you feel your situation is an emergency, please call 911 immediately. . Non-Emergent Contact Non-Emergency issues call your: Primary Care Provider Call Non-Emergent contact if: you have a fever, you have any medication questions . . "Provider Documentation" section prepared by Collins Gilbert. . VTE Core Measure Inpt VTE Proph given/why not?: Unfractionated heparin SQ Additional Copies To Martinez Chong III, M.D.
[2016-10-01 13:27] LABS: QUANTIF TB AG-NIL <0.00 IU/ML; QUANTIFERON NIL 0.03 IU/ML
== END 2016-09-29 17:49 | disposition home or self-care (01) | DRG 181 ==
LOC: ENRESERVDT → ENRESERVTM → C.EDB 11:05 → EDBEDREQ 12:58 → C.4E 13:08
PROVIDERS: ADMIT Internal Medicine; ATTEND Internal Medicine
PROC: 0B9N3ZX Drainage of Right Pleura, Percutaneous Approach, Diagnostic (ICD-10-PCS; principal; 2016-09-27)
DX: C34.91 Malignant neoplasm of unspecified part of right bronchus or lung (principal); J91.0 Malignant pleural effusion; J98.19 Other pulmonary collapse; F41.9 Anxiety disorder, unspecified; F32.9 Major depressive disorder, single episode, unspecified; N40.0 Benign prostatic hyperplasia without lower urinary tract symptoms; E78.5 Hyperlipidemia, unspecified; N41.9 Inflammatory disease of prostate, unspecified

== ENCOUNTER 2016-11-07 17:54 | Emergency (ER) | payer OTHER, MEDICARE ==
[~2016-11-07] VITALS: Ht 188 cm; Wt 83.5 kg
[~2016-11-07 17:54] MED LIST changes: +ATV5 PO; +DUTA0.5C PO
[2016-11-07 18:08] VITALS: TEMP 36.7; Ht 188 cm; Wt 83.5 kg
[2016-11-07] MEDS ORDERED: TAMS0.4C38 PO (18:54)
[2016-11-07] MEDS ORDERED: DIAZ2TAB PO (18:54)
[2016-11-07] MEDS ORDERED: IPRASOL4 INH (18:54)
[2016-11-07] MEDS ORDERED: MRPL PO (18:54)
[2016-11-07] MEDS ORDERED: ONDA4TAB46 SQ (18:54)
[2016-11-07] MEDS ORDERED: LORA-741 PO (18:54)
[2016-11-07] MEDS ORDERED: NYSS5 PO (18:54)
--- NOTE | 2016-11-07 19:27 | DIAGNOSTIC IMAGING REPORT ---
CHEST ONE VIEW PORTABLE HISTORY: Short of breath. Pleural effusion. COMPARISON: Chest and chest CT 09/27/2016. FINDINGS: Moderate right pleural effusion has increased in size. No pneumothorax. Right upper lobe perihilar consolidation is partially obscured by the pleural effusion. There are also left upper lobe nodular densities. Diffuse reticulonodular interstitial thickening has progressed. IMPRESSION: 1. Increase in size in the moderate right pleural effusion. 2. The reticulonodular interstitial thickening has progressed. This could be due to sarcoidosis, tuberculosis, chronic interstitial lung disease or lymphangitic carcinomatosis. Pulmonary edema could also have a similar appearance but is considered less likely. Clinical correlation recommended. 3. Left upper lobe nodular airspace opacities have developed in the interval. The right upper lobe perihilar consolidation is partially obscured by the pleural effusion. Electronically signed by: Javon Pedersen M.D. 11/07/2016 7:26 PM Dictated Date/Time: 11/07/2016 7:23 PM
[2016-11-07 20:19] VITALS: BP 129/90; PULSE 85; O2SAT 93
--- NOTE | 2016-11-07 20:24 | EMERGENCY ROOM VISIT NOTE ---
History First contact with patient: 18:12 Chief Complaint: SHORTNESS OF BREATH Stated Complaint: SHORTNESS OF BREATH Nursing Triage Summary: per hand scraper pt is a hospice care for lung cancer and was reffered to ER by Dr. Castillo roberts. pt states "I think I have fluid build up on my lungs again." pt c/o SOB. xray showed large plueral effusion. "Its mainly on the right side." pt states he usually wears 2LNC but at the moment is wearing 3LNC History of Present Illness The patient is a 66 year old male who presents to the Emergency Room with complaints of increasing shortness of breath over the past 5 days. The patient is receiving home hospice care due to lung cancer. The patient has adenocarcinoma of the right lung. He states that over the past several days, he has had worsening shortness of breath. He typically uses 2 L of oxygen at home but has been using 3 L over the past few days. He states he is having more difficulty recovering from short walks. He had a mobile x-ray done today and was told he has a pleural effusion and should come here. He states that Dr. Moore drained the pleural effusion in the hospital. He denies any chest pain or fevers. Review of Systems A complete 10 point review of systems was reviewed with the patient with pertinent positives and negatives as per history of present illness. All else were negative. Past Medical/Surgical History Medical Problems: (1) Prostatitis (2) Pulmonary cavitary lesion (3) SOB (shortness of breath) on exertion Family History Unobtainable Social History Smoking Status: Never Smoker Alcohol Use: occasionally Drug Use: none Marital Status: Housing Status: lives with family Occupation Status: employed Current/Historical Medications Scheduled Nystatin (Nystatin), 5 ML PO QID Tamsulosin Hcl (Flomax), 0.4 MG PO DAILY Scheduled PRN Diazepam (Valium), 2 MG PO Q6 PRN for Anxiety Ipratropium-Albuterol (Duoneb), 1 TREATMENT INH QID PRN for Shortness of Breath Lorazepam (Ativan), 0.5 MG PO TID PRN for Anxiety Morphine Sulfate (Morphine Sulfate), 10 MG PEG Q2H PRN for Pain Ondansetron Hcl (Zofran), 4 MG SQ Q8 PRN for Nausea Allergies Coded Allergies: Sulfamethoxazole w/Trimethoprim (Verified Allergy, Severe, RASH, 11/07/16) Peanut (Unverified Allergy, Intermediate, HIVES, DIFFICULTY BREATHING, 09/02) Uncoded Allergies: "EMMIE" ASTHMA RELATED (Allergy, Unknown, 06/25/02) Physical Exam Vital Signs Date Time Temp Pulse Resp B/P (MAP) Pulse Ox O2 Delivery O2 Flow Rate FiO2 11/07/16 20:19 85 16 129/90 93 Nasal Cannula 3.0 11/07/16 19:02 84 18 163/96 93 Nasal Cannula 3.0 11/07/16 18:12 91 Nasal Cannula 3.0 11/07/16 18:08 36.7 83 24 122/84 91 Room Air Physical Exam VITALS: Vitals are noted on the nurse's note and reviewed by myself. Vital signs stable. GENERAL: This is a 66-year-old male, chronically ill-appearing, well-developed well-nourished. HEART: Regular rate and rhythm without murmurs gallops or rubs. LUNGS: Decreased lung sounds throughout the right lung. No accessory muscle use or retractions noted. Dullness to percussion over the right lung base. NEURO: Patient was alert and oriented to person place and time. Medical Decision & Procedures ER Provider Diagnostic Interpretation: CHEST ONE VIEW PORTABLE HISTORY: Short of breath. Pleural effusion. COMPARISON: Chest and chest CT 09/27/2016. FINDINGS: Moderate right pleural effusion has increased in size. No pneumothorax. Right upper lobe perihilar consolidation is partially obscured by the pleural effusion. There are also left upper lobe nodular densities. Diffuse reticulonodular interstitial thickening has progressed. IMPRESSION: 1. Increase in size in the moderate right pleural effusion. 2. The reticulonodular interstitial thickening has progressed. This could be due to sarcoidosis, tuberculosis, chronic interstitial lung disease or lymphangitic carcinomatosis. Pulmonary edema could also have a similar appearance but is considered less likely. Clinical correlation recommended. 3. Left upper lobe nodular airspace opacities have developed in the interval. The right upper lobe perihilar consolidation is partially obscured by the pleural effusion. ED Course The patient was evaluated as above. Chest x-ray was performed and read by radiology as above. Case was discussed with Dr. Moore, pulmonology. He will perform a thoracentesis in the ED. Dr. Moore performed ultrasound-guided thoracentesis. He performed ultrasound afterward to check for pneumothorax with no evidence of pneumothorax. The patient tolerated the procedure very well and felt better afterward. Discharge instructions were reviewed with the patient. The patient verbalized understanding of my assessment and treatment plan and was discharged home in good condition. Medical Decision Differential diagnosis includes pleural effusion, pneumothorax, CHF, pneumonia, among others. The patient is a 66-year-old male who presents today complaining of shortness of breath. He has a history of lung cancer and is on hospice care. One view chest x-ray showed a large right pleural effusion. Dr. Moore was consulted and performed a thoracentesis with ultrasound guidance. Please see his dictation for procedure details and consultation note. The patient felt much better afterward and I do feel he can safely be discharged home. He will follow up with Dr. Moore in the office as needed. The patient's case was reviewed with Dr. Carr, ED attending physician, who agreed with my assessment and treatment plan. Based on the patient's presentation and work up, I feel the patient is stable for outpatient treatment. The patient was educated to return to the emergency department for any worsening of their current condition or new/concerning symptoms. He will follow up with Dr. Moore. Medication reconciliation: I attest that I have personally reviewed the patient 's current medication list. Blood Pressure Screening: Patient was found to have a slightly elevated blood pressure due to circumstances. I do not believe that the patient requires hypertension monitoring. Impression Primary Impression: Pleural effusion Departure Information Dispostion Home / Self-Care Condition GOOD Referrals Martinez Chong III, M.D. (PCP) Miller Moore MD Patient Instructions My [facility] Additional Instructions Follow-up with Dr. Moore as needed. Stop the steroid inhaler. Return to the emergency department if new or worsening symptoms.
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
--- NOTE | 2016-11-07 20:55 | Procedure Note ---
Procedure Note Date of Service Nov 07, 2016. Procedure Note Procedures: Right sided Thoracentesis Consent: obtained via the patient and placed into the chart Pre-Procedural Dx: Right-sided malignant pleural effusion Post-Procedural Dx: Right-sided malignant pleural effusion Analgesia: 8cc of 1% Liquid Lidocaine Procedure: The patient was placed in an upright position and thoracic US was used to select a spot for the procedure. A spot along the posterior axillary line was marked in the 7th intercostal space. The patient was then draped and prepped in a sterile fashion. A modified Seldinger technique was then used for catheter placement. Flowing this approximately 1500cc of serosanguineous pleural fluid was removed. The patient was then cleaned and placed at a 60 degree angle in the bed were the US was used to evaluate for possible pneumothorax. Post thoracentesis ultrasound showed large anterior fluid collection on his right hemithorax. There was no signs of pneumothorax. EBL: None Complications: None
== END 2016-11-07 20:43 | disposition home or self-care (01) ==
LOC: C.EDB 17:55
DX: J91.0 Malignant pleural effusion (principal); C34.91 Malignant neoplasm of unspecified part of right bronchus or lung; Z88.2 Allergy status to sulfonamides; Z91.010 Allergy to peanuts

== ENCOUNTER 2016-11-28 18:08 | Emergency (ER) | payer OTHER, MEDICARE ==
[~2016-11-28] VITALS: Ht 188 cm; Wt 85.0 kg
[~2016-11-28 18:08] MED LIST changes: -ATV5 PO; -B-COCAP2 PO; -CRAN400C PO; +DIAZ2TAB PO; -DUTA0.5C PO; -IBUP-1050 PO; +IPRASOL4 INH; +LORA-741 PO; +MRPL PO; +NYSS5 PO; -OMEG10007 PO; +ONDA4TAB46 SQ; +TAMS0.4C38 PO
[2016-11-28 18:25] VITALS: TEMP 36.3; Ht 188 cm; Wt 85.0 kg
--- NOTE | 2016-11-28 18:54 | EMERGENCY ROOM VISIT NOTE ---
History Report prepared by Torrie: Paul Hill Under the Supervision of: Dr. Rafael Arias D.O. First contact with patient: 18:40 Chief Complaint: RESPIRATORY PROBLEMS Stated Complaint: DIFFICULTY BREATHING Nursing Triage Summary: Pt states hospice sent pt in for possible fluid in his lungs, has lung cancer. Pt states he does not want blood work etc, usually Dr Moore comes in and drains the fluid while patient in the ER. pt reports anxiety from SOB and it's causing his shoulder to hurt, so if we could help with that that would be appreciated. History of Present Illness The patient is a 66 year old male who presents to the Emergency Room with complaints of severe and worsening shortness of breath starting a few days ago. He feels as though he is drowning. He has worsening difficulty breathing with lying down flat. He currently complains of left sided chest pain. He has bilateral lower extremity edema which is worse on the right side. He took Lasix this morning without relief. He was referred to the Emergency Room by his hospice nurse. He was recently diagnosed with lung cancer. The patient has a history of fluid drained from lungs on the right side. He is on oxygen at home. He is not on any blood thinners. He denies fevers, cough, or any other complaints. Source of History: patient Onset: a few days ago Position: other (global) Symptom Intensity: severe Quality: other (shortness of breath) Timing: worsening Modifying Factors (Worsening): other (lying down flat) Modifying Factors (Relieving): other (Lasix without relief) Associated Symptoms: + chest pain (left sided), No fevers, No cough Review of Systems See HPI for pertinent positives & negatives. A total of 10 systems reviewed and were otherwise negative. Past Medical & Surgical Medical Problems: (1) Prostatitis (2) Pulmonary cavitary lesion (3) SOB (shortness of breath) on exertion Family History Unobtainable Social History Smoking Status: Never Smoker Alcohol Use: occasionally Drug Use: none Marital Status: Housing Status: lives with family Occupation Status: employed Current/Historical Medications Scheduled Lorazepam (Ativan), 1 MG PO Q4H Morphine Sulfate (Morphine Sulfate Er), 1 TAB PO BID Nystatin (Nystatin), 5 ML PO QID Scheduled PRN Morphine Sulfate (Morphine Sulfate), 10 MG PO Q2H PRN for Pain Ondansetron Hcl (Zofran), 4 MG SQ Q8 PRN for Nausea Miscellaneous Medications Furosemide (Lasix), 20 MG PO Allergies Coded Allergies: Sulfamethoxazole w/Trimethoprim (Verified Allergy, Severe, RASH, 11/28/16) Peanut (Unverified Allergy, Intermediate, HIVES, DIFFICULTY BREATHING, ) Uncoded Allergies: "EMMIE" ASTHMA RELATED (Allergy, Unknown, 06/25/02) Physical Exam Vital Signs Date Time Temp Pulse Resp B/P (MAP) Pulse Ox O2 Delivery O2 Flow Rate FiO2 11/28/16 22:50 81 22 140/89 94 11/28/16 22:16 81 15 140/89 95 Room Air 11/28/16 20:33 85 22 129/91 93 Nasal Cannula 4.0 11/28/16 19:46 84 19 147/91 94 Nasal Cannula 4.0 11/28/16 19:08 89 11/28/16 19:00 94 Nasal Cannula 4.0 11/28/16 18:25 36.3 98 22 125/92 89 Room Air 3.5 11/28/16 18:25 88 Nasal Cannula 3.5 Physical Exam GENERAL: Patient is awake, alert, very anxious and uncomfortable appearing. EYES: The conjunctivae are clear. The pupils are round and reactive. EARS, NOSE, MOUTH AND THROAT: The nose is without any evidence of any deformity. Mucous membranes are moist tongue is midline NECK: The neck is nontender and supple. RESPIRATORY: Lung sounds are diminished throughout. Lung sounds are near absent in the right lung field. Rales noted in the left lung field. Tachypnea with conversational dyspnea noted. CARDIOVASCULAR: Tachycardic rate but regular rhythm. No definite murmurs noted. GASTROINTESTINAL: The abdomen is soft. Bowel sounds are present in all quadrants. Abdomen is nontender MUSCULOSKELETAL/EXTREMITIES: There is no evidence of gross deformity full range of motion is noted in the hips and shoulders SKIN: Pale and dry. Pedal edema noted bilaterally. NEUROLOGIC: Patient is awake alert and oriented x3 Medical Decision & Procedures ER Provider Diagnostic Interpretation: X-ray results as stated below per interpretation by me and the radiologist. CHEST ONE VIEW PORTABLE CLINICAL HISTORY: SOB dyspnea COMPARISON STUDY: 11/07/2016 FINDINGS: Development of complete opacification right hemithorax. Generally stable reticular nodular pattern the left hemithorax. Left hemidiaphragm is smooth. IMPRESSION: Interval complete opacification right hemithorax. Unchanging diffuse reticular nodular changes left hemithorax The above report was generated using voice recognition software. It may contain grammatical, syntax or spelling errors. Electronically signed by: Yassine Rubio M.D. 11/28/2016 6:56 PM Dictated Date/Time: 11/28/2016 6:55 PM Laboratory Results 11/28/16 21:05 Red Blood Count 5.65, Mean Corpuscular Volume 85.1, Mean Corpuscular Hemoglobin 29.0, Mean Corpuscular Hemoglobin Concent 34.1, Mean Platelet Volume 10.0, Neutrophils (%) (Auto) 76.1, Lymphocytes (%) (Auto) 9.0, Monocytes (%) (Auto) 11.1, Eosinophils (%) (Auto) 3.2, Basophils (%) (Auto) 0.4, Neutrophils # (Auto ) 6.96, Lymphocytes # (Auto) 0.82, Monocytes # (Auto) 1.02, Eosinophils # (Auto ) 0.29, Basophils # (Auto) 0.04 11/28/16 21:05 Test 11/28/16 21:05 White Blood Count 9.15 K/uL (4.8-10.8) Red Blood Count 5.65 M/uL (4.7-6.1) Hemoglobin 16.4 g/dL (14.0-18.0) Hematocrit 48.1 % (42-52) Mean Corpuscular Volume 85.1 fL (80-100) Mean Corpuscular Hemoglobin 29.0 pg (25-34) Mean Corpuscular Hemoglobin Concent 34.1 g/dl (32-36) Platelet Count 246 K/uL (130-400) Mean Platelet Volume 10.0 fL (7.4-10.4) Neutrophils (%) (Auto) 76.1 % Lymphocytes (%) (Auto) 9.0 % Monocytes (%) (Auto) 11.1 % Eosinophils (%) (Auto) 3.2 % Basophils (%) (Auto) 0.4 % Neutrophils # (Auto) 6.96 K/uL (1.4-6.5) Lymphocytes # (Auto) 0.82 K/uL (1.2-3.4) Monocytes # (Auto) 1.02 K/uL (0.11-0.59) Eosinophils # (Auto) 0.29 K/uL (0-0.5) Basophils # (Auto) 0.04 K/uL (0-0.2) RDW Standard Deviation 40.6 fL (36.4-46.3) RDW Coefficient of Variation 13.1 % (11.5-14.5) Immature Granulocyte % (Auto) 0.2 % Immature Granulocyte # (Auto) 0.02 K/uL (0.00-0.02) Prothrombin Time 11.9 SECONDS (9.0-12.0) Prothromb Time International Ratio 1.1 (0.9-1.1) Activated Partial Thromboplast Time 29.1 SECONDS (21.0-31.0) Partial Thromboplastin Ratio 1.1 Anion Gap 3.0 mmol/L (3-11) Est Creatinine Clear Calc Drug Dose 97.1 ml/min Estimated GFR () 104.2 Estimated GFR (Non- 89.9 BUN/Creatinine Ratio 17.5 (10-20) Calcium Level 8.8 mg/dl (8.5-10.1) Total Bilirubin 0.6 mg/dl (0.2-1) Direct Bilirubin 0.2 mg/dl (0-0.2) Aspartate Amino Transf (AST/SGOT) 16 U/L (15-37) Alanine Aminotransferase (ALT/SGPT) 14 U/L (12-78) Alkaline Phosphatase 111 U/L (45-117) Total Protein 6.2 gm/dl (6.4-8.2) Albumin 2.5 gm/dl (3.4-5.0) Laboratory results per my review. ED Course 1840: The patient was evaluated in room C03. A complete history and physical examination were performed. 1906: I discussed the patient's case with Dr. Hernandez, community outreach advocate with [facility]. She will come to the Emergency Room to evaluate the patient. 2004: Dr. Hernandez will perform thoracentesis in the Emergency Room. 2029: Dr. Hernandez recommended further work up including ultrasound and blood work. The patient is agreeable to the treatment plan. 2053: The patient is signed out to Dr. Reyes. Blood work and ultrasound are pending. Medical Decision Prior records/ancillary studies reviewed. Triage Nursing notes reviewed. Additional history obtained from the family. The patient's history was concerning for respiratory difficulties. Differential diagnosis: Etiologies such as infections, reactive airway disease, pneumonia, pneumothorax , COPD, CHF, cardiac ischemia, pulmonary embolism, musculoskeletal, gastrointestinal, as well as others were entertained. The patient is a 66-year-old male who presented to the emergency department for an evaluation of shortness of breath. The patient is a very large malignant effusion which was drained previously. Currently the patient is on hospice but he is very uncomfortable and has significant shortness of breath as well as pain. The patient presented to the emergency department for a thoracentesis. I discussed his case with the on-call pulmonary physician. She was able to come to the emergency department and drain the patient's pleural effusion. He was feeling much better on subsequent reevaluation but he also had unilateral leg swelling that the community outreach advocate requested that we do a workup on. I discussed this with the patient and he was agreeable to a workup even know he admits that he only wants limited evaluations as well as therapies at this point. The patient was signed out to Dr. Reyes at change of shift pending the laboratory and ultrasound report. Please see her note for final disposition and plan. Medication Reconcilliation Current Medication List: was personally reviewed by me Blood Pressure Screening Patient's blood pressure: Normal blood pressure Consults Time Called: 1899 Consulting Physician: Dr. Hernandez, community outreach advocate with [facility] Returned Call: 1906 I discussed the patient's case with Dr. Hernandez, community outreach advocate with [facility]. She will come to the Emergency Room to evaluate the patient. Impression Primary Impression: Pleural effusion Additional Impressions: Hx of cancer of lung SOB (shortness of breath) Hypoxia Scribe Attestation The scribe's documentation has been prepared under my direction and personally reviewed by me in its entirety. I confirm that the note above accurately reflects all work, treatment, procedures, and medical decision making performed by me. Departure Information Dispostion Home / Self-Care Referrals Martinez Chong III, M.D. (PCP) Forms HOME CARE DOCUMENTATION FORM, IMPORTANT VISIT INFORMATION, WORK / SCHOOL INSTRUCTIONS Patient Instructions Effusion Pleural, My [facility], Thoracentesis Dc Additional Instructions Continue all medications as prescribed. Rest and avoid any strenuous activity. Return to the emergency apartment immediately if symptoms change worsen or the need arises. Problem Qualifiers
--- NOTE | 2016-11-28 18:57 | DIAGNOSTIC IMAGING REPORT ---
CHEST ONE VIEW PORTABLE CLINICAL HISTORY: SOB dyspnea COMPARISON STUDY: 11/07/2016 FINDINGS: Development of complete opacification right hemithorax. Generally stable reticular nodular pattern the left hemithorax. Left hemidiaphragm is smooth. IMPRESSION: Interval complete opacification right hemithorax. Unchanging diffuse reticular nodular changes left hemithorax The above report was generated using voice recognition software. It may contain grammatical, syntax or spelling errors. Electronically signed by: Yassine Rubio M.D. 11/28/2016 6:56 PM Dictated Date/Time: 11/28/2016 6:55 PM
[2016-11-28 19:00] VITALS: O2SAT 94
[2016-11-28] MEDS ORDERED: MORP1TAB11 PO (19:13)
[2016-11-28] MEDS ORDERED: ATV/1 PO (19:13)
[2016-11-28] MEDS ORDERED: FURO-85 PO (19:13)
[2016-11-28 21:21] LABS: BASO % 0.4 %; BASO ABS # 0.04 K/uL (0-0.2); COMPLETE YES; EOS % 3.2 %; HEMATOCRIT 48.1 % (42-52); IG% 0.2 %; LYMPH ABS # 0.82 K/uL (1.2-3.4); MEAN CELL VOLUME 85.1 fL (80-100); MEAN CORPUSCULAR HGB CONC 34.1 g/dl (32-36); MONO % 11.1 %; NEUT % 76.1 %; PLATELET COUNT 246 K/uL (130-400); RED BLOOD COUNT 5.65 M/uL (4.7-6.1); WHITE BLOOD COUNT 9.15 K/uL (4.8-10.8)
--- NOTE | 2016-11-28 21:26 | Procedure Note ---
Procedure Note Date of Service Nov 28, 2016. Procedure Note Procedures: Right sided Thoracentesis Consent: obtained via the patient and placed into the chart Pre-Procedural Dx: Right-sided malignant pleural effusion Post-Procedural Dx: Right-sided malignant pleural effusion Analgesia: 8cc of 1% Liquid Lidocaine Procedure: The patient was placed in an upright position and thoracic US was used to select a spot for the procedure. A spot along the posterior axillary line was marked in the 7th intercostal space. The patient was then draped and prepped in a sterile fashion. A modified Seldinger technique was then used for catheter placement. Flowing this approximately 2000cc of cream soda-colored pleural fluid was removed. The patient was then cleaned and placed at a 60 degree angle in the bed were the US was used to evaluate for possible pneumothorax. Post thoracentesis ultrasound showed large anterior fluid collection on his right hemithorax. There was no signs of pneumothorax. EBL: None Complications: None Postprocedure chest x-ray was ordered.
[2016-11-28 21:31] LABS: INR 1.1 (0.9-1.1); PARTIAL THROMBOPLASTIN RATIO 1.1; PROTHROMBIN TIME (PATIENT) 11.9 SECONDS (9.0-12.0)
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
[2016-11-28 21:39] LABS: BUN/CREATININE RATIO 17.5 (10-20); CALCIUM 8.8 mg/dl (8.5-10.1); CREATININE 0.87 mg/dl (0.60-1.40); POTASSIUM 4.1 mmol/L (3.5-5.1)
--- NOTE | 2016-11-28 22:08 | DIAGNOSTIC IMAGING REPORT ---
VENOUS DOPPLER LW EXT BILAT HISTORY: Pain. Edema. swelling COMPARISON STUDY: None. FINDINGS: There is normal compressibility, flow, and augmentation within the bilateral lower extremity deep venous systems. IMPRESSION: No DVT within the right or left lower extremity. The above report was generated using voice recognition software. It may contain grammatical, syntax or spelling errors. Electronically signed by: Yassine Rubio M.D. 11/28/2016 10:07 PM Dictated Date/Time: 11/28/2016 10:06 PM
[2016-11-28 22:50] VITALS: BP 140/89; PULSE 81; O2SAT 94
--- NOTE | 2016-11-29 08:01 | DIAGNOSTIC IMAGING REPORT ---
CHEST ONE VIEW PORTABLE CLINICAL HISTORY: S/P thoracentesis dyspnea COMPARISON STUDY: 6:50 PM same date FINDINGS: Near complete opacification right hemithorax. No significant pneumothorax at this time. Left hemithoracic findings are similar. IMPRESSION: Slight improvement in aeration post right thoracentesis. Bulk of the right hemithorax remains opacified. No significant pneumothorax The above report was generated using voice recognition software. It may contain grammatical, syntax or spelling errors. Electronically signed by: Yassine Rubio M.D. 11/28/2016 8:48 PM Dictated Date/Time: 11/28/2016 8:47 PM
--- NOTE | 2016-11-29 09:06 | EMERGENCY ROOM VISIT NOTE ---
ED Visit Note First contact with patient: 21:06 I received this patient in signout at the change of shift pending US BLE and lab work. US are negative for DVT. I explained findings to pt and his . We had a discussion regarding his pleural effusion, pleurex cath vs recurrent pleurocentesis. He will f/u with Dr Moore for further management. He was d/c to his 's care. Pt will return to the ED for worsening of symptoms or any medical concerns.
== END 2016-11-28 23:04 | disposition home or self-care (01) ==
LOC: C.EDB 18:09 → C.EDC 23:04
DX: C34.90 Malignant neoplasm of unspecified part of unspecified bronchus or lung (principal); J91.0 Malignant pleural effusion; J96.11 Chronic respiratory failure with hypoxia; Z99.81 Dependence on supplemental oxygen; R60.0 Localized edema; F41.9 Anxiety disorder, unspecified; Z98.890 Other specified postprocedural states; Z79.899 Other long term (current) drug therapy